=== PATIENT | female | born 1950 | race Caucasian/White ===

== ENCOUNTER 2016-06-26 06:38 | Day surgery (SDC) | payer OTHER ==
[~2016-06-26] VITALS: Ht 161.9 cm; Wt 78.7 kg
[2016-06-26] VITALS (10 sets, daily range): BP systolic 89–162; BP diastolic 52–94; PULSE 81–99; RESP 11–18; O2SAT 93–100
[~2016-06-26 06:38] MED LIST: ALBU8.5H2 INHALATION; AMLO2.5T PO; ASPI-973 PO; CYCL10TA9 PO; IPRA0.2S51 IH; LEVO75TA4 PO; LOSA50TA3 PO; NORT25CA PO; OMEP20TA86 PO; SIMV20TA4 PO
[2016-06-26] MEDS ORDERED: Propofol 10,000 mCg/mL 20 mL Inj ONE (06:39)
[2016-06-26] MEDS ORDERED: Phenylephrine/NS 100 mCg/mL 10 mL Syringe IVPUSH ONE (06:39)
[2016-06-26] MEDS ORDERED: Dexamethasone 4 mg/mL Inj ONE (06:39)
[2016-06-26] MEDS ORDERED: fentaNYL-PF 50 mCg/mL 2 mL Inj ONE (06:39)
[2016-06-26] MEDS ORDERED: Albuterol HFA 200 Puff Inhaler (Vent Pts Only) ONE (06:39)
[2016-06-26] MEDS ORDERED: Ondansetron 2 mg/mL 2 mL Inj ONE (06:39)
[2016-06-26] MEDS ORDERED: Succinylcholine Chloride 20 mg/mL 5 mL Inj ONE (06:39)
[2016-06-26] MEDS: Lactated Ringer's 1,000 ML IV SCH ×3 (06:50→08:32)
--- NOTE | 2016-06-26 07:29 | PCM.HPANE ---
Patient Data Surgeon Admitting Provider: Attending Provider:Naima Griggs MD Primary Care Physician:Chanell Jackson PA-C Other Provider:Ann Marie [place] Anesthesia Reason for Visit Bladder Tumor Ht/WT & BMI Height (Feet): 5 Height (Inches): 3.75 Weight (Kilograms): 79.2 Body Mass Index 30.00 Allergies Coded Allergies: No Known Allergies (Unverified , 06/24/16) Past Anesthesia History Anesthesia History: Denies:: Anesthesia Reactions, Malignant Hyperthermia Diabetes History Hx Diabetes?: No MRSA MRSA: No Medications Blood Thinner: Aspirin Hypertension Medication: Yes (AMLODIPINE,COZAAR) Reported Medications Simvastatin 20 Mg Dhogox75 Mg PO HS Ref 0 06/24/16 Omeprazole 20 Mg Tablet.dr20 Mg PO DAILY 06/24/16 Nortriptyline 25 Mg Fgafbng58 Mg PO HS 06/24/16 Levothyroxine 75 Mcg Kiltiv07 Mcg PO DAILY Ref 0 06/24/16 Ipratropium [place] (Ipratropium [place] Inhalant Solution)0.2 Mg/1 Ml Solution0.2 Mg IH QID Ref 0 06/24/16 Cyclobenzaprine 10 Mg Limyzn04 Mg PO HS PRN Spasm Ref 0 06/24/16 Losartan Potassium (Cozaar)50 Mg Wabpzf26 Mg PO DAILY 06/24/16 Albuterol HFA (Proair HFA)8.5 Gm Hfa.aer.ad2 Puffs INHALATION Q4H PRN PRN #1 INHALER 06/24/16 Discontinued Reported Medications Aspirin 81 Mg Xhwfjn55 Mg PO DAILY Ref 0 06/24/16 Amlodipine 2.5 Mg Tablet2.5 Mg PO DAILY Ref 0 06/24/16 History History of ENT Problems?: No Hx of Heart Problems?: Yes Cardiovascular History: Positive for:: Hypertension (HYPERLIPIDEMIA) Denies:: Heart Murmur Hx of Respiratory Problem?: Yes Respiratory History: Positive for:: Asthma COPD Dyspnea (INTERMITTANT WHEEZING) Use of Inhalers / NEBS Denies:: Use of C-PAP Machine Hx Neurologic Problems?: Yes Hx of GI Problems?: Yes Gastrointestinal History: Positive for:: Gall Bladder Disease (S/P SHERRY) Rectal Bleeding (S/P RECTAL PROLAPSE RPR) Hx of Problems?: Yes Genitourinary History: Positive for:: Kidney Stones (HX CYSTINE URINARY TRACT STONES) Other Pertinent History: S/P URETEROSCOPY,TURBT X2 HX BLADDER CA 2005,2008 C/OF NOCTURIA,HEMATURIA (RESOLVED) BLADDER TUMOR=CURRENT PROBLEM Female Hx: Denies:: Currently Skin History: Denies:: History Skin Disorders? Pressure Ulcers Hx Musculoskeletal Problems?: Yes Musculoskeletal History: Positive for:: Musculoskeletal Trauma (S/P THUMB RPR) Hx of Psycho/Social Problems?: No Hx Surgeries?: Yes (TURBT X2,URETEROSCOPY,THUMB RPR,HYST,SHERRY,RECTAL PROLAPSE RPR) Other History: Positive for:: Cancer (BLADDER X2) Thyroid Disease Denies:: Hospitalization Hx Diabetes: No Hx Alcohol Use: NoHx Substance Use: NoHave You Smoked inLast 12 mo: Yes Approx How Many Cigarettes/day: 6-7 C/DAY Stop/Bang S-Snoring: Do You Snore Loudly: No T-Tired: feel tired, fatigued: Yes O-Obsered: Observed not breath: No P-Blood Pressure: treated: Yes B- Body Mass Index > 35 kg/m2: No A- Age over 50: Yes N- Neck Large Circumference: No G- Gender Male: No TJ Total Score: 3 Risk Assessment Category Category 1A: Patient has history of documented sleep apnea, and HAS NOT received any narcotic, sedative or anesthesia administration during this stay. Category 1B: Patient has history of documented sleep apnea, and HAS received any narcotic , sedative or anesthesia administration during this stay Category 2: Patient has SUSPECTED Obstructive Sleep Apnea, and HAS received any narcotic , sedative or anesthesia administration during this stay. Category 3: Patient has SUSPECTED Obstructive Sleep Apnea and HAS NOT received narcotic, sedative or anesthesia administration during this stay. Category 4: Outpatient in Procedural Areas with known sleep apnea or who screen positive for High Risk via the STOP/BANG questionnaire. Exam Exam General Appearance: Alert, Oriented X3, Cooperative, No Acute Distress HEENT/AIRWAY: MP 2 Lungs: Coarse Heart: Regular Rate/Rhythm Meds/Labs/Diagnostics Admission Meds Current Medications Lactated Ringer's (Lr) 1,000 ml @ 120 mls/hr Q8H20M IV Last administered on t 06:50; Start 06/26/16 at 05:00; Stop 06/26/16 at 13:19 Plan Impression Patient chart reviewed, patient interviewed and anesthestic plan with risks, benefits, and alternatives discussed, and informed consent obtained. ASA Physical Status: ASA3 Severe Disease Anesthetic Plan: GA Bene/Risks/Altern/Consents: Yes HP Complete Prior to Induction: Yes Lexie Rushing DO Jun 26, 2016 07:29
[2016-06-26] MEDS: CeFAZolin Inj 2 GM in IV Premix 1 EACH IV ONE ×2 (08:22→08:42)
[2016-06-26] MEDS ORDERED: Lactated Ringer's 500 ML IV PRN (08:27)
[2016-06-26] MEDS ORDERED: Lactated Ringer's 1,000 ML IV SCH (08:27)
[2016-06-26] MEDS ORDERED: fentaNYL-PF 50 mCg/mL 2 mL Inj IVPUSH PRN (08:30)
[2016-06-26] MEDS ORDERED: MetoCLOpramide 5 mg/mL 2 mL Inj IVPUSH PRN (08:30)
[2016-06-26] MEDS ORDERED: HYDROmorphone 1 mg/mL Inj IVPUSH PRN (08:30)
[2016-06-26] MEDS ORDERED: Phenylephrine 10,000 mCg/mL Inj IVPUSH PRN (08:30)
[2016-06-26] MEDS ORDERED: Albuterol-Ipratropium 3 mL Inhalation Solution NEB PRN (08:30)
[2016-06-26] MEDS ORDERED: Ondansetron 2 mg/mL 2 mL Inj IVPUSH PRN (08:30)
[2016-06-26] MEDS ORDERED: EPHEDrine Sulfate 50 mg/mL Inj IVPUSH PRN (08:30)
[2016-06-26] MEDS ORDERED: HYDROcodone-APAP 5-325 mg Tablet PO PRN (09:05)
--- NOTE | 2016-06-26 09:28 | PCM.ANEP2 ---
Post Anesthesia Evaluation ASA/CMS Post Anesthesia VS in Patient's Normal Range?: Yes Resp Stable; Airway Patent?: Yes CV Function & Hydration Stable: Yes Mental Status Recovered?: Yes Pain control Satisfactory?: Yes N/V Control Satisfactory?: Yes Lexie Rushing DO Jun 26, 2016 09:28
--- NOTE | 2016-06-26 09:28 | PCM.ANEP1 ---
Post Anesthesia Phase 1 PACU Phase 1 Assessment Vital Signs Vital Signs Date Time Temp Pulse Resp B/P Pulse Ox O2 Delivery O2 Flow Rate FiO2 06/26/16 07:25 36.1 88 18 162/90 97 Room Air Anesthetic Administered: GA Level of Alertness: Sleepy, easy to arouse MANCIA's with Equal Strength: Yes Pain: No Nausea or Vomiting: No Airway Device: Oralpharangeal Airway Oxygen Delivery: Simple Mask Lungs: Lexie Clark DO Jun 26, 2016 09:28
[2016-06-26] MEDS ORDERED: Epinephrine Racemic 2.25% 0.5 mL Inhalation Solution NEB ONE (09:59)
--- NOTE | 2016-06-26 10:38 | DRSVH ---
PROCEDURE: X-RAY CHEST ONE VIEW, PORTABLE ([id number]) INDICATIONS: BRONCHOSPASM TECHNIQUE: One view of the chest was acquired. COMPARISON: None. FINDINGS: Surgical changes and devices: Cervical fixation hardware is grossly intact. Lungs and pleura: Diffuse interstitial markings are present bilaterally, more confluent within the pe ripheral right lung. No pleural effusion or pneumothorax. Mediastinum: Mediastinal contours appear normal. Heart size is normal. Bones and chest wall: No suspicious bony lesions. Overlying soft tissues appear unremarkable. IMPRESSION: 1. Diffuse interstitial markings most confluent in the right peripheral lung. It is unclear whether t hese represent underlying pulmonary fibrosis or pulmonary edema. No prior comparisons are available t o determine the acuity of this finding. Dictated by: Maricruz Cervantes M.D. on 06/26/2016 at 10:33 Approved by: Maricruz Cervantes M.D. on 06/26/2016 at 10:36
--- NOTE | 2016-06-26 19:35 | OP ---
[address] [address] OPERATIVE REPORT PATIENT: [place] : 1950 MR#: [id number] ADMIT: 06/26/2016 JOB ID: [id number] DATE OF SURGERY: 06/26/2016 SURGEON: Naima Griggs MD. DEPARTMENT SALES MANAGER: None. PREOPERATIVE DIAGNOSIS(ES): Bladder tumor. POSTOPERATIVE DIAGNOSIS(ES): Bladder tumor. PROCEDURE PERFORMED: 1. Pelvic exam under anesthesia. 2. Cystoscopy and transurethral resection of bladder tumor (approximately 1.5 cm). FINDINGS: 1. Papillary tumor posterior and lateral to the ureteral orifice at the right base. 2. No abnormal masses on pelvic exam. ANESTHESIA: General. ESTIMATED BLOOD LOSS: Less than 1 mL. DRAINS: None. SPECIMEN: Bladder tumor. COMPLICATIONS: None. CONDITION: Stable. INDICATION FOR PROCEDURE: The patient is a 66-year-old woman with a history of bladder cancer. She was found to have recurrent bladder tumor. She now presents for transurethral resection of bladder tumor. DESCRIPTION OF PROCEDURE: After informed consent was obtained, the patient was taken to the operating room. A time-out was performed identifying correct patient, surgical site and procedure. General anesthesia was smoothly induced. She was placed in the lithotomy position and all pressure points were identified and appropriately padded. A bimanual pelvic exam was performed; it was nromal. The bladder was fully mobile. Next, her genitals were then prepped and draped in usual sterile fashion. A 26-Japanese resectoscope was then applied to the patient's urethra under direct vision and advanced into the bladder. The bladder was drained. Both 30-and 70-degree lenses were used for panendoscopy. There was just the one bladder tumor as mentioned. A 24-Japanese loop was then applied to the tumor and it was resected in piecemeal fashion. There was good resection of the base with gross muscle visible. There was no fat ever visible during the procedure. The specimens were drained from the patient's bladder in their entirety. The base of the tumor, as well as a 1 cm surrounding margin, were fulgurated with the loop. The bladder was reinspected. There was excellent hemostasis. The tumor was passed off the table as bladder tumor to Pathology. The instruments were then removed from patient's body and she was reversed from general anesthesia and taken to the PACU in good and stable condition. CHERELLE
== END 2016-06-26 23:59 | disposition home or self-care (01) ==
LOC: SAS 06:38
PROVIDERS: ATTEND Urology
DX: C67.9 Malignant neoplasm of bladder, unspecified (principal); I10 Essential (primary) hypertension; M19.90 Unspecified osteoarthritis, unspecified site; J44.9 Chronic obstructive pulmonary disease, unspecified; J45.909 Unspecified asthma, uncomplicated; F17.210 Nicotine dependence, cigarettes, uncomplicated; Z87.442 Personal history of urinary calculi; Z79.82 Long term (current) use of aspirin; Z85.51 Personal history of malignant neoplasm of bladder
CPT/HCPCS: 52234; 71010; J0330; J0690; J1100; J2370; J2405; J3010; J7120; J7620